=== PATIENT | male | born 1970 | race Caucasian/White ===

== ENCOUNTER 2016-08-18 18:40 | Emergency (ER) | payer BC ==
[2016-08-18] MEDS ORDERED: NITROGLYCERIN OINT 1 INCH/GM PACKET TOPICAL STA (19:34)
[2016-08-18] MEDS ORDERED: ASPIRIN 81 MG CHEW PO STA (19:34)
--- NOTE | 2016-08-18 19:37 | ED ---
General Adult HPI - General Chief complaint: Recheck/Abnormal Lab/Rx Stated complaint: abn labs Time Seen by Provider: 08/18/16 19:28 Source: patient, RN notes reviewed Mode of arrival: ambulatory Limitations: no limitations - History of Present Illness Initial comments: Patient is a pleasant 45-year-old male presenting to the emergency department for abnormal lab results. Patient saw his doctor for what he believed to be anxiety. Symptoms have been present for a few months. Patient does feel anxious and nervous. Patient is having she is taking care of his mother. Patient does admit to having some mild chest tightness. Patient did have blood work done. Blood work was done around 2:00 today. Patient did receive a call stating there was concern for pulmonary embolism. Patient denies dyspnea. No associated nausea or diaphoresis either. Patient has had similar symptoms once years ago associated with anxiety. - Related Data Home Medications Medication Instructions Recorded Confirmed FLUoxetine HCL [PROzac] 20 mg PO DAILY 08/18/16 08/18/16 Gluc/[place]-MSM#1/C/Juan/Andre/Bor 1 tab PO DAILY 08/18/16 08/18/16 [Glucosamine-Chondroitin Tablet] Multivitamins, Thera [Multivitamin 1 tab PO DAILY 08/18/16 08/18/16 (formulary)] Allergies Allergy/AdvReac Type Severity Reaction Status Date / Time No Known Allergies Allergy Verified 08/18/16 20:17 Review of Systems ROS Statement: Those systems with pertinent positive or pertinent negative responses have been documented in the HPI. ROS Other: All systems not noted in ROS Statement are negative. Constitutional: Denies: fever Eyes: Denies: eye pain ENT: Denies: ear pain Respiratory: Denies: cough, dyspnea Cardiovascular: Reports: chest pain Endocrine: Denies: heat or cold intolerance Gastrointestinal: Denies: abdominal pain Genitourinary: Denies: dysuria Musculoskeletal: Denies: back pain Skin: Denies: rash Neurological: Denies: weakness Psychiatric: Reports: anxiety Past Medical History Past Medical History: No Reported History History of Any Multi-Drug Resistant Organisms: None Reported Past Surgical History: No Surgical Hx Reported Past Psychological History: Anxiety Smoking Status: Current every day smoker Past Alcohol Use History: Daily Past Drug Use History: None Reported General Exam Limitations: no limitations General appearance: alert, in no apparent distress Head exam: Present: atraumatic Eye exam: Present: normal appearance, PERRL ENT exam: Present: normal oropharynx Neck exam: Present: normal inspection Respiratory exam: Present: normal lung sounds bilaterally. Absent: chest wall tenderness Cardiovascular Exam: Present: regular rate, normal rhythm Expanded Peripheral pulses: 2+: Dorsalis Pedis (R), Dorsalis Pedis (L) GI/Abdominal exam: Present: soft. Absent: tenderness Extremities exam: Present: normal inspection. Absent: pedal edema, calf tenderness Neurological exam: Present: alert Psychiatric exam: Present: normal affect, normal mood Skin exam: Absent: rash Course Vital Signs 08/18/16 08/18/16 08/18/16 18:44 19:45 21:00 Temperature 97.4 F L Pulse Rate 68 68 Pulse Rate [ 69 Bilateral Analysis Intern ] Respiratory 20 18 Rate Blood Pressure 123/80 122/68 O2 Sat by Pulse 98 98 Oximetry EKG Findings - EKG Comments: EKG Findings:: Sinus bradycardia at 55. Normal intervals. Normal axis. Normal QRS. No acute ST change. Medical Decision Making - Medical Decision Making Patient reexamined and resting comfortably in bed. Patient symptom-free. Patient and family updated on results. Patient is made aware that heart disease has not been completely ruled out. Patient is made aware of limitations in the emergency department. Patient is made aware that troponin cannot rule out heart attack over the past 6 hours. Patient is also made aware that he could be at risk for heart attack in the near future. Patient is advised if he decides to leave to have close follow-up with primary care physician. Patient does demonstrate medical decision making. Family is also present. Patient refuses admission. - Lab Data Result diagrams: 08/18/16 19:51 08/18/16 19:51 Lab Results 08/18/16 08/18/16 08/18/16 Range/Units 19:51 19:51 19:51 WBC 6.9 (3.8-10.6) k/uL RBC 4.63 (4.30-5.90) m/uL Hgb 14.5 (13.0-17.5) gm/dL Hct 44.3 (39.0-53.0) % MCV 95.6 (80.0-100.0) fL MCH 31.3 (25.0-35.0) pg MCHC 32.7 (31.0-37.0) g/dL RDW 13.1 (11.5-15.5) % Plt Count 242 (150-450) k/uL Neutrophils % 60 % Lymphocytes % 28 % Monocytes % 6 % Eosinophils % 3 % Basophils % 1 % Neutrophils # 4.1 (1.3-7.7) k/uL Lymphocytes # 1.9 (1.0-4.8) k/uL Monocytes # 0.4 (0-1.0) k/uL Eosinophils # 0.2 (0-0.7) k/uL Basophils # 0.1 (0-0.2) k/uL PT (9.0-12.0) sec INR (<1.1) APTT (22.0-30.0) sec Sodium 143 (137-145) mmol/L Potassium 4.1 (3.5-5.1) mmol/L Chloride 104 (98-107) mmol/L Carbon Dioxide 27 (22-30) mmol/L Anion Gap 12 mmol/L BUN 9 (9-20) mg/dL Creatinine 0.75 (0.66-1.25) mg/dL Est GFR (MDRD) Af Amer >60 (>60 ml/min/1.73 sqM) Est GFR (MDRD) Non-Af >60 (>60 ml/min/1.73 sqM) Glucose 77 (74-99) mg/dL Calcium 9.7 (8.4-10.2) mg/dL Magnesium 2.2 (1.6-2.3) mg/dL Total Bilirubin 0.5 (0.2-1.3) mg/dL AST 40 (17-59) U/L ALT 35 (21-72) U/L Alkaline Phosphatase 62 (38-126) U/L Total Creatine Kinase 165 (55-170) U/L CK-MB (CK-2) 2.3 (0.0-2.4) ng/mL CK-MB (CK-2) Rel Index 1.4 Troponin I <0.012 (0.000-0.034) ng/mL Total Protein 8.0 (6.3-8.2) g/dL Albumin 5.1 H (3.5-5.0) g/dL 08/18/16 Range/Units 19:51 WBC (3.8-10.6) k/uL RBC (4.30-5.90) m/uL Hgb (13.0-17.5) gm/dL Hct (39.0-53.0) % MCV (80.0-100.0) fL MCH (25.0-35.0) pg MCHC (31.0-37.0) g/dL RDW (11.5-15.5) % Plt Count (150-450) k/uL Neutrophils % % Lymphocytes % % Monocytes % % Eosinophils % % Basophils % % Neutrophils # (1.3-7.7) k/uL Lymphocytes # (1.0-4.8) k/uL Monocytes # (0-1.0) k/uL Eosinophils # (0-0.7) k/uL Basophils # (0-0.2) k/uL PT 9.7 (9.0-12.0) sec INR 0.9 (<1.1) APTT 24.8 (22.0-30.0) sec Sodium (137-145) mmol/L Potassium (3.5-5.1) mmol/L Chloride (98-107) mmol/L Carbon Dioxide (22-30) mmol/L Anion Gap mmol/L BUN (9-20) mg/dL Creatinine (0.66-1.25) mg/dL Est GFR (MDRD) Af Amer (>60 ml/min/1.73 sqM) Est GFR (MDRD) Non-Af (>60 ml/min/1.73 sqM) Glucose (74-99) mg/dL Calcium (8.4-10.2) mg/dL Magnesium (1.6-2.3) mg/dL Total Bilirubin (0.2-1.3) mg/dL AST (17-59) U/L ALT (21-72) U/L Alkaline Phosphatase (38-126) U/L Total Creatine Kinase (55-170) U/L CK-MB (CK-2) (0.0-2.4) ng/mL CK-MB (CK-2) Rel Index Troponin I (0.000-0.034) ng/mL Total Protein (6.3-8.2) g/dL Albumin (3.5-5.0) g/dL - Radiology Data Radiology results: report reviewed (CT angios the chest shows no evidence of pulmonary embolism) Disposition Clinical Impression: Anxiety, Chest pain Disposition: HOME SELF-CARE Condition: Stable Instructions: Chest Pain (ED), Anxiety (ED) Additional Instructions: Please follow-up with primary care physician tomorrow. Return for difficulty in breathing, chest pain, nausea vomiting, sweating, worsening or changing symptoms or other concerns. Referrals: Sudhir Sierra MD [Primary Care Provider] - 1-2 days
[2016-08-18] MEDS ORDERED: RX INFO: IV CONTRAST WAS GIVEN 1 EACH MISC MISCELLANE PRN (20:01)
[2016-08-18 20:08] LABS: Basophils # (A) 0.1 k/uL (0-0.2); Basophils % (A) 1 %; CH 31.7; CHCM 33.2; Eosinophils # (A) 0.2 k/uL (0-0.7); Eosinophils % (A) 3 %; HCT 44.3 % (39.0-53.0); HDW 1.97; HGB 14.5 gm/dL (13.0-17.5); Luc # (Auto) 0.18; Luc % (Auto) 3; Lymphocytes # (A) 1.9 k/uL (1.0-4.8); Lymphocytes % (A) 28 %; MCH 31.3 pg (25.0-35.0); MCHC 32.7 g/dL (31.0-37.0); MCV 95.6 fL (80.0-100.0); Mean Platelet Volume 6.7; Monocytes # (A) 0.4 k/uL (0-1.0); Monocytes % (A) 6 %; Neutrophils # (A) 4.1 k/uL (1.3-7.7); Neutrophils % (A) 60 %; RBC 4.63 m/uL (4.30-5.90); RDW 13.1 % (11.5-15.5); WBC 6.9 k/uL (3.8-10.6); WBC (Perox) 6.91
[2016-08-18 20:18] LABS: ALT 35 U/L (21-72); AST 40 U/L (17-59); Alkaline Phosphatase 62 U/L (38-126); Anion Gap 12 mmol/L; Blood Urea Nitrogen 9 mg/dL (9-20); Calcium 9.7 mg/dL (8.4-10.2); Carbon Dioxide 27 mmol/L (22-30); Chloride 104 mmol/L (98-107); Glucose 77 mg/dL (74-99); Magnesium 2.2 mg/dL (1.6-2.3); Non-African American GFR(MDRD) >60 (>60 ml/min/1.73 sqM); Potassium 4.1 mmol/L (3.5-5.1); Sodium 143 mmol/L (137-145); Total Bilirubin 0.5 mg/dL (0.2-1.3)
[2016-08-18 20:21] LABS: INR 0.9 (<1.1); Partial Thromboplastin Time 24.8 sec (22.0-30.0); Prothrombin Time 9.7 sec (9.0-12.0)
[2016-08-18 20:39] LABS: Creatine Kinase 165 U/L (55-170)
--- NOTE | 2016-08-18 20:43 | CT ---
EXAMINATION TYPE: CT angio chest DATE OF EXAM: 08/18/2016 8:32 PM COMPARISON: NONE HISTORY: chest pressure, abnormal ekg/labs CT DLP: 168.1 mGycm CONTRAST: CT chest with contrast and 3D reconstruction with MIP imaging is performed with IV Contrast, patient injected with 70 mL of Omnipaque 350. Contrast-enhanced CT of the chest was performed through the course of the pulmonary arteries with beverly g and mediastinal window settings submitted. 3D reconstruction with MIP imaging was also performed. PULMONARY ARTERIES: The pulmonary arteries and their major tributaries are patent. I do not see aditi dence for sizable filling defect to suggest pulmonary embolic process. LUNGS: The lungs are clear and free of infiltrate. No evidence for atelectasis. No pulmonary nodule or mass is detected. No pleural effusion. MEDIASTINUM: Thoracic aorta is of normal caliber . The heart is not enlarged. No evidence for media stinal mass. No mediastinal lymph nodes greater than 1cm. HILAR STRUCTURES: No evidence for mass. No hilar lymph nodes greater than 1 cm. UPPER ABDOMEN: No significant abnormality is seen. IMPRESSION: 1. No evidence for Pulmonary embolism at this time.
[2016-08-18 20:51] LABS: Creatine Kinase MB 2.3 ng/mL (0.0-2.4); Troponin I <0.012 ng/mL (0.000-0.034)
[2016-08-18 21:06] VITALS: BP 122/68
[2016-08-18 21:13] VITALS: PULSE 78; RESP 16; TEMP 97.8
== END 2016-08-18 21:15 | disposition home or self-care (01) ==
LOC: EC 18:40
DX: R07.89 Other chest pain (principal); F41.9 Anxiety disorder, unspecified; F17.200 Nicotine dependence, unspecified, uncomplicated; Z79.899 Other long term (current) drug therapy
CPT/HCPCS: 36415; 93005; 80053; 82550; 82553; 83735; 84484; 85025; 85610; 85730; 71275; 99284; Q9967

== ENCOUNTER → 2017-11-02 | Outpatient (CLI) | payer BC ==
--- NOTE | 2017-11-03 10:34 | ECHOS ---
STRESS ECHOCARDIOGRAM DATE OF SERVICE: 11/02/2017 INDICATIONS: Chest pain. MEDICATIONS: Celexa, Inderal, Motrin. BASELINE HEART RATE: 73 BASELINE BLOOD PRESSURE: 146/60 MAXIMUM HEART RATE: 159 MAXIMUM BLOOD PRESSURE: 191/88 85% MPHR: 149 100% MPHR: 175 METS: 10.3 MAXIMUM STAGE REACHED: 3 TOTAL EXERCISE TIME: 9:00 CLINICAL INFORMATION: Baseline EKG revealed a normal sinus rhythm without significant ST-T changes. Patient walked on a standard Michael protocol for 9 minutes, achieved a maximum heart rate of 159 beats per minute which is more than 85% of predicted maximum. He developed fatigue and shortness of breath but did not have any angina or arrhythmia. EKG did not reveal any ST-segment changes to indicate ischemia. By EKG criteria this is a negative stress test with fair exercise capacity. Baseline echo images revealed normal wall motion and wall thickening of all segments. At peak exercise there was good augmentation of left ventricular wall motion and wall thickening of all segments suggesting that there is no evidence of stress-induced ischemia on this study. IMPRESSION: 1. By EKG criteria this is a negative stress test. Fair exercise capacity. 2. Normal stress echocardiogram. MMODL / IJN: [id number] /
== END | disposition home or self-care (01) ==
LOC: RADNMMAIN 11:23
PROVIDERS: ATTEND Family Medicine
DX: R07.89 Other chest pain (principal)
CPT/HCPCS: 93351

== ENCOUNTER → 2018-11-17 | Outpatient (CLI) | payer BC ==
--- NOTE | 2018-11-19 13:22 | MR ---
MRI CERVICAL SPINE: CLINICAL HISTORY: Cervical disc disorder with radiculopathy per order. Neck pain into shoulders and a jorden bilaterally for years per patient. TECHNIQUE: Multiplanar, multisequence imaging of the cervical spine is performed without IV contrast. COMPARISON: None. FINDINGS: Exam slightly suboptimal due to motion artifact degradation. Sagittal images of the cervica l spine show the craniocervical junction to appear within normal limits. The cervical and upper thor acic spinal cord is normal in course, caliber, and signal. Vertebral alignment is anatomic. The madi tebral body and intravertebral disk heights are normal. The bone marrow signal intensity is within n ormal limits. No suspicious spurring is seen. Axial images show the C2-C3 and C3-C4 levels appear within normal limits. Axial images at C4-C5 level show right foraminal spur disc complex mildly effacing anterolateral thec al sac and causing [id number] right-sided neural foraminal narrowing on axial image 29. Axial images at C5-C6, C6 and C7, C7-T1 levels are felt within normal limits. Thyroid gland is unrema rkable. IMPRESSION: Right paracentral spur disc complex C4-C5 level effaces anterolateral thecal sac and caus es asymmetric [id number] right-sided neural foraminal narrowing.
== END | disposition home or self-care (01) ==
LOC: RADMRIMAIN 19:49
PROVIDERS: ATTEND Physician Assistant
DX: M48.02 Spinal stenosis, cervical region (principal)
CPT/HCPCS: 72141

== ENCOUNTER → 2018-11-27 | Outpatient (CLI) | payer BC ==
[2018-11-27 12:11] VITALS: BP 149/84; PULSE 69; RESP 16
--- NOTE | 2018-11-28 09:34 | P.PAINCN ---
History of Present Illness - Reason for Consult Consult date: 11/27/18 - History of Present Illness This is a 47-year-old male patient who presents with a history of neck pain radiating to bilateral shoulders, bilateral lateral aspects of the arms. Pain started a few months ago with no inciting events. 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 He endorses numbness and tingling in the lateral aspects of his arms as well as all 5 fingers left greater than right. He occasionally drops objects when his hands are numb. The pain is significantly worse at night, and wakes him up from sleep. Pain is better with flexion, extension exercises of his neck and Flexeril. Pain is rated as 0-5 on 10 in his neck and 0-10 on 10 in his arms. The pain is intermittent. The patient has had an intramuscular steroid injection with some benefit. He has not been to physical therapy, and has not had surgery. Patient has been taking medications from primary care physician including Flexeril with some relief. Patient denies adverse drug effects from medications. Patient also denies new-onset weakness, bowel/bladder incontinence, or any other signs or symptoms of cauda equina syndrome. There are no signs of acute intoxication, and no indications of medication diversion or overuse. In addition to above, 13-point review of systems is also negative for chest pain, shortness of breath, changes in vision, changes in hearing, new onset weakness, abdominal pain, diarrhea, extreme fatigue, malaise, fever, skin changes, homicidal or suicidal ideation, or bowel or bladder incontinence. The patient is a smoker and smokes about one pack per day Physical exam: Vital Signs: Reviewed in EMR GENERAL: Well appearing, in no acute distress PSYCH: Mood and affect is appropriate. Awake, alert, and oriented SKIN: Skin color, texture, turgor normal, no rashes or lesions HEENT: Normocephalic, atraumatic. EOM intact CV: No pedal edema RESP: Respirations are unlabored, no audible wheezing GI: Abdomen non-distended MUSCULOSKELETAL: Bilateral upper and lower extremity strength is normal and symmetric. No atrophy or tone abnormalities are noted. Neck: No pain to palpation over the cervical paraspinous muscles. Spurling negative, Axial Loading Test negative, Thorne's sign negative. No pain with neck flexion, extension, or lateral flexion. No obvious deformity or signs of trauma. Normal cervical lordotic curve and normal cervical spine range of motion Extremities: Peripheral joint ROM is full and pain free without obvious instability or laxity in all four extremities. No edema or skin discolorations noted. Gait: Gait is normal NEUR: Bilateral upper extremity coordination and muscle stretch reflexes are physiologic and symmetric. Negative clonus. No loss of sensation is noted. Cranial nerves are grossly intact. Imaging: MRI cervical spine done on 11/17/2018 at [facility] shows right paracentral spur disc complex at C4-C5 level if facing anterolateral thecal sac and causing mild to moderate right-sided neural foraminal narrowing Assessment: 1. Cervicalgia 2. Cervical radicular pain 3. Cervical degenerative disc disease Plan: 1. Explanation: Opioid and psychological risk scores were reviewed. Diagnoses, prognoses, and multiple treatment options including but not limited to physical therapy, interventional therapies, adjuvant medical therapies, narcotic medication therapies, and surgery were discussed with the patient and all questions were answered to the patient's satisfaction. 2. Opioid agreement: None 3. Counseling: The patient was counseled extensively on SMOKING CESSATION, EXERCISE. Specifically, the patient was instructed regarding the importance of smoking cessation, and exercise in the context of both chronic pain and overall health. 4. Procedures: Will schedule C7-T1 cervical epidural steroid injection 5. Consultations: None at this time, following procedure, would recommend neck physical therapy with traction. 6. Investigations: MRI C-spine reviewed 7. Medications: Encouraged to discuss starting Neurontin with his primary care physician. Would recommend initial dose of 300 mg 3 times a day, with up titration as tolerated. 8. Disposition: For procedure Past Medical History Past Medical History: GERD/Reflux, Hearing Disorder / Deafness, Musculoskeletal Disorder Additional Past Medical History / Comment(s): HX CONSTIPATED FOR MONTHS. HYPOGLYCEMIC. TACHYCARDIA. HX KIDNEY STONES. C/O NECK PAIN RADIATES TO ARMS, BACK. History of Any Multi-Drug Resistant Organisms: None Reported Past Surgical History: Orthopedic Surgery Additional Past Surgical History / Comment(s): IVP 1996. LT 5TH METATARSAL. Past Anesthesia/Blood Transfusion Reactions: No Reported Reaction Past Psychological History: Anxiety Smoking Status: Current every day smoker Past Alcohol Use History: Daily, Heavy Additional Past Alcohol Use History / Comment(s): SMOKES 1 PPD SINCE AGE 18. DRINKS 12 BEERS DAILY Past Drug Use History: None Reported - Past Family History Mother Family Medical History: No Reported History Sister(s) Family Medical History: Cancer, Diabetes Mellitus Medications and Allergies Home Medications Medication Instructions Recorded Confirmed Type Citalopram Hydrobromide [CeleXA] 40 mg PO HS 02/28/17 11/23/18 History EPINEPHrine (Auto Inject) [Epipen] 1 each INJ DAILY PRN 02/28/17 11/23/18 History Ibuprofen [Motrin] 800 mg PO Q8H PRN 02/28/17 11/23/18 History Atenolol [Tenormin] 25 mg PO HS 11/23/18 11/23/18 History Cyclobenzaprine [Flexeril] 5 mg PO HS PRN 11/23/18 11/23/18 History Allergies Allergy/AdvReac Type Severity Reaction Status Date / Time bee venom protein (honey bee) Allergy Anaphylaxis Verified 11/27/18 11:56 HAYFEVER Allergy Rhinitis Uncoded 11/27/18 11:56 Physical Exam Vitals: Vital Signs Pulse Resp BP 11/27/18 11:56 69 16 149/84 PQRS Measure Charge Sheet Measure #130: Documentation of Current Meds in Medical Chart: Patient's medications documented in chart Measure #226: Tobacco Use: Screen & Cessation Intervention: Pt screened for tobacco use AND intervention given Measure #111: Pneumonia Vaccination: Pneumococcal vaccine NOT administered or previously given Measure #47: Advance Care Plan: Advance care planning discussed & documented, pt chose/unable to give Measure #412: Opioid Treatment Agreement: No documentation of signed opioid treatment agreement Measure #317: Preventitive Care & Scrn High Bld Press & F/U: Pre-hypertensive or hypertensive BP documented, pt will f/u with PCP Measure #128: Body Mass Index (BMI) Screening & Follow-up: BMI documented within normal parameters Measure #131: Pain Assessment & Follow-up: Pain positive & plan documented, Follow-up scheduled Measure #431: Unhealthy Alcohol Use Preventative Care & Scrn: Patient not identified as an unhealthy alcohol user PQRS Narrative: Smoking Status Current every day smoker Blood Pressure 149/84 Pain Intensity [Bilateral Hand 0 ] Pain Intensity [Bilateral Arm] 0 Pain Intensity [Neck] 3 Hx Alcohol Use (MH) Yes: 12 BEERS DAILY EST Home Medications: Ambulatory Orders Citalopram Hydrobromide [CeleXA] 40 mg PO HS 02/28/17 EPINEPHrine (Auto Inject) [Epipen] 1 each INJ DAILY PRN 02/28/17 Ibuprofen [Motrin] 800 mg PO Q8H PRN 02/28/17 Atenolol [Tenormin] 25 mg PO HS 11/23/18 Cyclobenzaprine [Flexeril] 5 mg PO HS PRN 11/23/18
== END | disposition home or self-care (01) ==
LOC: PNWHC3 11:49
PROVIDERS: ATTEND Anesthesiology
DX: M50.10 Cervical disc disorder with radiculopathy, unspecified cervical region (principal); F17.210 Nicotine dependence, cigarettes, uncomplicated; Z79.899 Other long term (current) drug therapy
CPT/HCPCS: 99211

== ENCOUNTER → 2018-12-04 | Day surgery (SDC) | payer BC ==
[2018-11-29 12:17] VITALS: BMI 22.8
[~2018-12-04] MED LIST: IV FLUID CONTINUATION 1,000 ML IV ONE; LACTATED RINGERS 1,000 ML IV ONE
[2018-12-04 10:09] VITALS: RESP 17; TEMP 98
--- NOTE | 2018-12-04 11:34 | P.PCN ---
Date of Procedure: 12/04/18 Procedure(s) Performed: Diagnosis: Cervical radiculopathy Cervical degenerative disc disease POSTOPERATIVE DIAGNOSIS: Diagnoses: Cervical radiculopathy Cervical degenerative disc disease PROCEDURE Cervical Epidural steroid injection under fluoroscopic guidance at the C7-T1 interspace using left paramedian approach Cervical epidurogram ANESTHESIA: Local with 1% lidocaine 3 ml and IV sedation with Versed and fentanyl Fluoroscopy was used for the procedure and images were saved in the radiology portion of the chart. EBL: Minimal PROCEDURE INDICATION: The patient presents with cervical radicular symptoms unresponsive to conservative treatment. This is the first cervical epidural steroid injection. PROCEDURE DESCRIPTION / TECHNIQUE: The patient was seen and identified in the preoperative area. Risks, benefits, complications including but not limited to infections ,bleeding ,allergic reaction to the medications ,nerve damage and incomplete pain relief, and alternatives were discussed with the patient. The patient agreed to proceed with the procedure and signed the consent. IV was started, and vital signs were stable. Patient was taken to the OR and time out was completed. The patient was placed in the prone position on procedure table and a pillow was placed under the chest area. The cervical area was prepped and draped in the usual sterile fashion. Conscious sedation was used during the procedure to decrease patients anxiety. Vital signs was monitored during the entire procedure. Using anterior-posterior fluoroscopy, the C7-T1 interlaminar space was identified and the skin over this site was marked and then infiltrated with 1% lidocaine subcutaneously. Subsequently, a 20-gauge Tuohy epidural needle was inserted and advanced toward the epidural space using the loss of resistance technique and guided by AP and 50 oblique fluoroscopy. The correct needle position in the epidural space was verified. After negative aspiration for blood and CSF and in the absence of paresthesias, Isovue 200 2 mL's was injected under live fluoroscopy with good epidural spread. After negative aspiration, a 5 ml mixture containing 10 mg of dexamethasone, 3 mL of preservative free normal saline and 1 mL of 1% lidocaine was injected. Needle was withdrawn intact, skin was cleansed, and bandages were applied. COMPLICATIONS: None DISPOSITION / PLANS: The patient was placed in a supine position and transferred to the recovery area in a stable condition for observation. There was no evidence of lower extremity motor or sensory deficit after the procedure. Patient was discharged from the recovery room after meeting discharge criteria. Home discharge instructions were given to the patient by the staff. The patient will be scheduled a follow-up in the clinic in 2-4 weeks.
[2018-12-04 11:55] VITALS: BP 127/77; PULSE 67
--- NOTE | 2018-12-04 14:53 | FL ---
Fluoroscopy HISTORY: Pain 5 seconds fluoroscopy time supplied to the referring clinician. 3 intraoperative C-arm images docume nt the procedure. See dictated report from anesthesia.
== END ==
LOC: ORPAIN 09:22
PROVIDERS: ATTEND Anesthesiology
DX: M50.121 Cervical disc disorder at C4-C5 level with radiculopathy (principal); K21.9 Gastro-esophageal reflux disease without esophagitis; H91.90 Unspecified hearing loss, unspecified ear; F41.9 Anxiety disorder, unspecified; K59.00 Constipation, unspecified; F17.200 Nicotine dependence, unspecified, uncomplicated; Z87.442 Personal history of urinary calculi; Z79.1 Long term (current) use of non-steroidal anti-inflammatories (NSAID); Z79.899 Other long term (current) drug therapy; J30.1 Allergic rhinitis due to pollen; Z91.030 Bee allergy status; Z83.3 Family history of diabetes mellitus; Z80.9 Family history of malignant neoplasm, unspecified
CPT/HCPCS: 62321; J2250; J1100; J3010; Q9966; 99152

== ENCOUNTER → 2019-01-02 | Outpatient (CLI) | payer BC ==
[2019-01-02 12:10] VITALS: BP 153/86; PULSE 67; RESP 16
--- NOTE | 2019-01-02 15:20 | P.PAINPG ---
Subjective Progress Note Date: 01/02/19 Survey is a 48-year-old male who presents for follow-up after a cervical interlaminar injection, at the end of November. His MRI previously showed a C4-C5 paracentral disc complex. He previously complained of bilateral shoulder pain which radiated down his arms. After his injection he has had complete reso lution of his symptoms. He is very happy with the results. He had one incidence where he had some numbness in his hands after holding something for a long period of time, otherwise no new symptoms. He is very functional. Objective - Vital Signs Vital signs: Vital Signs Temp Pulse 67 01/02/19 12:03 Resp 16 01/02/19 12:03 BP 153/86 01/02/19 12:03 Pulse Ox 98 01/02/19 12:03 Intake & Output 01/01/19 01/02/19 01/02/19 18:59 06:59 18:59 Weight 65.771 kg - Exam Vital Signs: Reviewed in EMR GENERAL: Well appearing, in no acute distress, PSYCH: Mood and affect is appropriate. Awake, alert, and oriented SKIN: Skin color, texture, turgor normal, no rashes or lesions HEENT: Normocephalic, atraumatic. EOM intact CV: No pedal edema RESP: Respirations are unlabored, no audible wheezing GI: Abdomen non-distended MUSCULOSKELETAL: Bilateral upper and lower extremity strength is normal and symmetric. No atrophy or tone abnormalities are noted. Neck: No tenderness to palpation over cervical paraspinals. . No pain with neck flexion, extension, or lateral flexion. No obvious deformity or signs of trauma. Normal cervical lordotic curve and normal cervical spine range of motion Extremities: Peripheral joint ROM is full and pain free without obvious instability or laxity in all four extremities. No edema or skin discolorations noted. Gait: Gait is anantalgic NEUR: Bilateral upper and lower extremity coordination and muscle stretch refl exes are physiologic and symmetric. Negative clonus. No loss of sensation is noted. Cranial nerves are grossly intact. Assessment and Plan Assessment: Assessment: 1. Cervical radicular pain, resolved Plan: 1. Explanation: Spoke to him about nature of steroids, and how long they typically last. 2. Opioid agreement: None 3. Counseling: The patient was told to stay active. 4. Procedures: None at this time, however if his pain returns we can schedule a C7-T1 interlaminar epidural steroid injection 5. Consultations: None 6. Investigations: MRI reviewed 7. Medications: None 8. Disposition: As needed, he can call in for procedure , PQRS Measure Charge Sheet Measure #226: Tobacco Use: Screen & Cessation Intervention: Pt screened for tobacco use AND intervention given Measure #111: Pneumonia Vaccination: Pneumococcal vaccine NOT administered or previously given Measure #47: Advance Care Plan: Advance care planning discussed & documented, pt chose/unable to give Measure #131: Pain Assessment & Follow-up: Pain positive & plan documented, Follow-up scheduled PQRS Narrative: Smoking Status Current every day smoker Blood Pressure 153/86 Pain Intensity [Bilateral Arm] 0 Scale Used Numeric (1 - 10) Hx Alcohol Use (MH) Yes: 12 BEERS DAILY EST Home Medications: Ambulatory Orders Citalopram Hydrobromide [CeleXA] 40 mg PO HS 02/28/17 EPINEPHrine (Auto Inject) [Epipen] 1 each INJ DAILY PRN 02/28/17 Ibuprofen [Motrin] 800 mg PO Q8H PRN 02/28/17 Atenolol [Tenormin] 25 mg PO HS 11/23/18 Cyclobenzaprine [Flexeril] 5 mg PO HS PRN 11/23/18 Controlled Substance Measures - Controlled Substance Measures Is patient prescribed a controlled substance at discharge?: No
== END | disposition home or self-care (01) ==
LOC: PNWHC3 11:55
PROVIDERS: ATTEND Student in an Organized Health Care Education/Training Program
DX: M25.511 Pain in right shoulder (principal); F17.200 Nicotine dependence, unspecified, uncomplicated; Z79.899 Other long term (current) drug therapy
CPT/HCPCS: 99211

== ENCOUNTER → 2019-06-06 | Outpatient (CLI) | payer BC ==
--- NOTE | 2019-06-06 09:09 | US ---
EXAMINATION TYPE: US abdomen complete DATE OF EXAM: 06/06/2019 COMPARISON: NONE CLINICAL HISTORY: R10.9 Abdominal pain. abdominal pain, constipation EXAM MEASUREMENTS: Liver Length: 16.8 cm Gallbladder Wall: 0.2 cm CBD: 0.4 cm Spleen: 9.1 cm Right Kidney: 10.0 x 4.6 x 4.8 cm Left Kidney: 9.8 x 6.1 x 5.0 cm Pancreas: slightly heterogeneous Liver: wnl Gallbladder: Elongated measuring 8.8 cm Evidence for sonographic Orozco's sign: no CBD: wnl Spleen: wnl Right Kidney: no evidence of hydronephrosis Left Kidney: no evidence of hydronephrosis Upper IVC: wnl Abd Aorta: wnl The liver is homogenous. The intrahepatic portion of the IVC and proximal abdominal aorta are within normal limits. There is no evidence of cholelithiasis. Common bile duct is unremarkable. The visu alized portions of the pancreas are slightly heterogenous. The spleen is unremarkable. Kidneys are symmetric and free of hydronephrosis. No renal lesions are seen. IMPRESSION: 1. Slightly heterogenous echotexture of the visualized pancreas. Correlate with serum amylase and lip ase to exclude pancreatitis. 2. No sonographic findings of acute cholecystitis. The gallbladder is noted to be elongated, which ma y be physiologic or related to biliary dysfunction. If there is further concern HIDA scan with CCK co uld evaluate for biliary dyskinesia.
== END | disposition home or self-care (01) ==
LOC: RADUSWWP 07:22
PROVIDERS: ATTEND Nurse Practitioner Adult Health
DX: K82.8 Other specified diseases of gallbladder (principal); R93.5 Abnormal findings on diagnostic imaging of other abdominal regions, including retroperitoneum
CPT/HCPCS: 76700

== ENCOUNTER → 2019-06-14 | Outpatient (CLI) | payer BC ==
--- NOTE | 2019-06-14 14:39 | NM ---
EXAMINATION TYPE: NM hepatobiliary w CCK DATE OF EXAM: 06/14/2019 COMPARISON: NONE HISTORY: Abdominal pain TECHNIQUE: After the intravenous administration of 4 mCi Tc 99m Mebrofenin hepatobiliary scintigraphy is performed. Immediate images post injection. FINDINGS: There is satisfactory initial accumulation of tracer by the liver. The gallbladder is visualized wit hin 12 minutes. The small bowel activity is noted within 8 minutes. At one hour CCK was administere d, patient was injected with 1.4 mcg of Kinevac, and gallbladder ejection fraction is calculated at 9 9 %, elevated. Therefore there is no scintigraphic evidence of cystic or common bile duct obstructio n to suggest acute cholecystitis or gallbladder dyskinesia. IMPRESSION: Abnormally elevated biliary ejection fraction of 99% compatible with biliary hyperkinesia .
== END | disposition home or self-care (01) ==
LOC: RADNMMAIN 12:31
PROVIDERS: ATTEND Family Medicine
DX: R93.2 Abnormal findings on diagnostic imaging of liver and biliary tract (principal); R10.9 Unspecified abdominal pain
CPT/HCPCS: 78227; A9537; J2805

== ENCOUNTER 2021-03-26 02:04 | Emergency (ER) | payer BC, OTHER ==
[2021-03-26 02:11] VITALS: TEMP 98.5
[2021-03-26 02:36] VITALS: BP 141/72; PULSE 78; RESP 18
== END 2021-03-26 02:36 ==
LOC: EC 02:04
DX: Z53.21 Procedure and treatment not carried out due to patient leaving prior to being seen by health care provider (principal)
CPT/HCPCS: 99499

== ENCOUNTER → 2024-08-08 | Outpatient (CLI) | payer BC ==
--- NOTE | 2024-08-08 15:35 | CT ---
EXAMINATION TYPE: CT heart w calcium score DATE OF EXAM: 08/08/2024 COMPARISON: None CLINICAL INDICATION: Male, 53 years old with history of Z82.49 FAMILY HX OF ISCHEM HEART DIS AND OTH DIS O; PHH, Family hx ischemic heart disease TECHNIQUE: Prospective Gating was used. Slice thickness: 3mm. Density threshold (HU): 130, Pixel threshold: 3, Algorithm: discrete. CT DLP: 568.[address] CTDI: mGy Automated exposure control for dose reduction was used. FINDINGS: CT CALCIUM SCORING Coronary calcium is a marker for plaque (fatty deposits) in a blood vessel or atherosclerosis (harden ing of the arteries). The presence and amount of calcium detected in a coronary artery by the CT sca n, indicates the presence and amount of atherosclerotic plaque. These calcium deposits appear years before the development of heart disease symptoms such as chest pain and shortness of breath. A calcium score is computed for each of the coronary arteries based upon the volume and density of th e calcium deposits. This can be referred to as your calcified plaque burden. It does not correspond directly to the percentage of narrowing in the artery but does correlate with the severity of the un derlying coronary atherosclerosis. RESULTS Region: LM Calcium Score ([place]): 0 Volume (mm3): 0 Mass (g): 0 Region: RCA Calcium Score ([place]): 0 Volume (mm3): 0 Mass (g): 0 Region: LAD Calcium Score ([place]): 4.17 Volume (mm3): 3.13 Mass (g): 1.04 Region: CX Calcium Score ([place]): 0 Volume (mm3): 0 Mass (g): 0 Region: PDA Calcium Score ([place]): 0 Volume (mm3): 0 Mass (g): 0 Total: Calcium Score ([place]): 0 Volume (mm3): 4.17 Mass (g): 1.04 TOTAL CALCIUM SCORE: 3.13 IMPRESSION: Calcium Score: 1-10 Implication: Minimal identifable plaque. Risk of Coronary Artery Disease: Very unlikely, less than 10%. CALCIUM SCORE IMPLICATION RISK OF C ORONARY ARTERY DISEASE 0 No identifiable plaque Very low, generally less than 5% 1-10 Minimal identifiable plaque Very unlikely, less than 10% 11-100 Definite, at least mild atherosclerotic plaque Mild or m inimal coronary narrowings likely 101-400 Definite, at least moderate atherosclerotic plaque Mild coronary ar giovanni disease highly likely, significant narrowing possible 401 or Higher Extensive atherosclerotic plaque High lik elihood of at least one significant coronary narrowing [facility], , 08/08/2024 3:33 PM
--- NOTE | 2024-08-09 10:20 | CA ---
Transthoracic Echo Report Name: Jose A Sultana Age: 53 Gender: M : 1970 Exam Date: 08/08/2024 13:47 Exam Location: [place] [facility] Ht (in): 68 Wt (lb): 150 Ordering Physician: Sudhir Sierra MD Attending/Referring Phys: Gricel Napier [facility] Marine Animal Trainer Rosy Carolina RDCS Procedure CPT: Indications: Z82.49 FAMILY HX OF ISCHEM HEART DIS AND OTH DIS O Cardiac Hx: Technical Quality: Good Contrast 1: Total Dose (mL): Contrast 2: Total Dose (mL): MEASUREMENTS (Male / Female) Normal Values 2D ECHO LV Diastolic Diameter PLAX 4.7 cm 4.2 - 5.9 / 3.9 - 5.3 cm LV Systolic Diameter PLAX 3.2 cm IVS Diastolic Thickness 0.9 cm 0.6 - 1.0 / 0.6 - 0.9 cm LVPW Diastolic Thickness 0.9 cm 0.6 - 1.0 / 0.6 - 0.9 cm LV Relative Wall Thickness 0.4 RV Internal Dim ED PLAX 2.6 cm LVOT Diameter 1.8 cm LA Systolic Diameter LX 2.2 cm 3.0 - 4.0 / 2.7 - 3.8 cm LV Diastolic Volume MOD 4C 92.7 cm??? LV Systolic Volume MOD 4C 40.1 cm??? LV Ejection Fraction MOD 4C 56.7 % LV Diastolic Length 4C 9.7 cm LV Systolic Length 4C 7.8 cm LV Diastolic Volume MOD 2C 102.7 cm??? LV Systolic Volume MOD 2C 37.7 cm??? LV Ejection Fraction MOD 2C 63.3 % LV Diastolic Length 2C 8.8 cm LV Systolic Length 2C 6.8 cm LA Volume 37.3 cm??? 18 - 58 / 22 - 52 cm??? LA Volume Index 20.6 cm???/m??? 16 - 28 cm???/m??? DOPPLER MV Area PHT 3.0 cm??? Mitral E Point Velocity 71.9 cm/s Mitral A Point Velocity 63.5 cm/s Mitral E to A Ratio 1.1 MV Deceleration Time 251.3 ms TR Peak Velocity 175.8 cm/s TR Peak Gradient 12.4 mmHg Right Atrial Pressure 5.0 mmHg Pulmonary Artery Systolic Pressu 17.4 mmHg Right Ventricular Systolic Press 17.4 mmHg FINDINGS Left Ventricle Left ventricular ejection fraction is estimated at 60-65 %. Normal Left ventricular size, wall thickness, systolic function with no obvious regional wall motion abnormalities. Right Ventricle Mild right ventricular dilatation. Right ventricular systolic pressure within normal limits. Right Atrium Normal right atrial size. Left Atrium Normal left atrial size. Mitral Valve Mitral annular calcification. No mitral stenosis. No mitral regurgitation. Aortic Valve Aortic valve not well visualized. No aortic stenosis. No aortic regurgitation. Tricuspid Valve Structurally normal tricuspid valve. No tricuspid stenosis. Trace tricuspid regurgitation. Pulmonic Valve Pulmonic valve not well visualized. No pulmonic stenosis. No pulmonic regurgitation. Pericardium No pericardial or pleural effusion. Aorta Normal size aortic root and proximal ascending aorta. CONCLUSIONS Indication: Family history of ischemic heart disease, referred by Dr. Sierra Normal LV size and function Prominent posterior pericardial stripe Previewed by: Dr. Raman Kowalski MD (Electronically Signed) Final Date: 09 August 2024 10:19
== END | disposition home or self-care (01) ==
LOC: RADECHMAIN 13:38
PROVIDERS: ATTEND Family Medicine
DX: I65.23 Occlusion and stenosis of bilateral carotid arteries (principal); Z82.49 Family history of ischemic heart disease and other diseases of the circulatory system
CPT/HCPCS: 75571; 93306

== ENCOUNTER 2024-09-11 16:56 | Inpatient (IN) | payer BC ==
[2024-09-11] MEDS: LORazepam 2 MG/ML INJ IV STA (17:21)
[2024-09-11] MEDS: SODIUM CHLORIDE 0.9% 1,000 ML IV ONE ×2 (17:21→20:22)
--- NOTE | 2024-09-11 17:23 | ED ---
General Adult HPI <Sandi Bird - Last Filed: 09/11/24 19:31> - General Source: patient, EMS, RN notes reviewed, old records reviewed Mode of arrival: EMS Limitations: altered mental status <Mitul Rudd - Last Filed: 09/11/24 20:06> - General Chief complaint: Alcohol Stated complaint: Seizure Time Seen by Provider: 09/11/24 17:05 - History of Present Illness Initial comments: This is a 53-year-old male who has a past medical history significant for seizures after he stops drinking. Patient has stopped drinking for about 72 hours according to EMS and he had a seizure today he hit his head and he has a laceration on the right posterior aspect of his head. Patient was extremely postictal in arrival and needed to have 10 of IM Versed given. Patient is coming around now and he is alert and oriented x 2 but still somewhat confused. No other history is available at this time (Mitul Rudd) - Related Data Home Medications Medication Instructions Recorded Confirmed Citalopram Hydrobromide [CeleXA] 40 mg PO DAILY 09/11/24 09/11/24 Meloxicam [Mobic] 15 mg PO DAILY 09/11/24 09/11/24 Propranolol [Inderal] 20 mg PO TID 09/11/24 09/11/24 buPROPion XL [Wellbutrin XL] 150 mg PO DAILY 09/11/24 09/11/24 busPIRone HCl [Buspar] 5 mg PO BID PRN 09/11/24 09/11/24 Allergies Allergy/AdvReac Type Severity Reaction Status Date / Time bee venom protein (honey bee) Allergy Anaphylaxis Verified 09/11/24 18:18 HAYFEVER Allergy Rhinitis Uncoded 09/11/24 18:18 Review of Systems ROS Other: All systems not noted in ROS Statement are negative. <Sandi Bird - Last Filed: 09/11/24 19:31> ROS Other: All systems not noted in ROS Statement are negative. <Mitul Rudd - Last Filed: 09/11/24 20:06> ROS Statement: Those systems with pertinent positive or pertinent negative responses have been documented in the HPI. Past Medical History Past Medical History: GERD/Reflux, Hearing Disorder / Deafness, Musculoskeletal Disorder Additional Past Medical History / Comment(s): HX CONSTIPATED FOR MONTHS. HYPOGLYCEMIC. TACHYCARDIA. HX KIDNEY STONES. C/O NECK PAIN RADIATES TO ARMS, BACK. History of Any Multi-Drug Resistant Organisms: None Reported Past Surgical History: Cholecystectomy, Orthopedic Surgery Additional Past Surgical History / Comment(s): IVP 1996. LT 5TH METATARSAL. Past Anesthesia/Blood Transfusion Reactions: No Reported Reaction Past Psychological History: Anxiety Smoking Status: Never smoker Past Alcohol Use History: Daily, Heavy Past Drug Use History: None Reported - Past Family History Mother Family Medical History: No Reported History Sister(s) Family Medical History: Cancer, Diabetes Mellitus <Mitul Rudd - Last Filed: 09/11/24 20:06> General Exam Limitations: altered mental status <Mitul Rudd - Last Filed: 09/11/24 20:06> - General Exam Comments Initial Comments: GENERAL: Patient is well-developed and well-nourished. Patient is nontoxic and well- hydrated and is in mild distress. ENT: Neck is soft and supple. No significant lymphadenopathy is noted. Oropharynx is clear. Moist mucous membranes. Neck has full range of motion without eliciting any pain. EYES: The sclera were anicteric and conjunctiva were pink and moist. Extraocular movements were intact and pupils were equal round and reactive to light. Eyelids were unremarkable. PULMONARY: Unlabored respirations. Good breath sounds bilaterally. No audible rales r honchi or wheezing was noted. CARDIOVASCULAR: There is a regular rate and rhythm without any murmurs gallops or rubs. ABDOMEN: Soft and nontender with normal bowel sounds. SKIN: Elevation on the scalp measuring about 5 cm NEUROLOGIC: Patient is alert and oriented x 2. Cranial nerves II through XII are grossly intact. Motor and sensory are also intact. Normal speech, volume and content. Symmetrical smile. MUSCULOSKELETAL: Normal extremities with adequate strength and full range of motion. LYMPHATICS: No significant lymphadenopathy is noted PSYCHIATRIC: Cannot fully evaluate at this time (Mitul Rudd) Course Vital Signs 09/11/24 09/11/24 09/11/24 17:04 18:17 19:18 Temperature 97.4 F L Pulse Rate 105 H 82 81 Respiratory 20 18 18 Rate Blood Pressure 134/97 117/82 131/87 O2 Sat by Pulse 96 98 97 Oximetry Procedures - Laceration Laceration #1 Consent Obtained: verbal consent Indication: laceration Site: scalp Size (cm): 7 Description: stellate, flap Depth: simple, single layer Anesthetic Used: lidocaine 1%, without epi Anesthesia Technique: local infiltration Pre-repair: wound explored Type of Sutures: other ([place]) Number of Sutures: 10 Patient Tolerated Procedure: well, no complications <Sandi Bird - Last Filed: 09/11/24 19:31> - Restraint - Face to Face Restraint Occurrence 2 Patient's Immediate Situation: Endangers self safety, Endangers staff safety, Violent behavior, Other (see comment) (Was in a postictal state when he arrived) Patient's Reaction to the Intervention: Uncooperative, Belligerent, Combative Need to Continue or Terminate Restraint or Seclusion: Continue Face to Face Eval of Restraint Date: 09/11/24 Face to Face Eval of Restraint Time: 17:15 <Mitul Rudd - Last Filed: 09/11/24 20:06> Medical Decision Making - Lab Data Result diagrams: 09/11/24 17:24 09/11/24 17:24 <Sandi Bird - Last Filed: 09/11/24 19:31> - Lab Data Result diagrams: 09/11/24 17:24 09/11/24 17:24 <Mitul Rudd - Last Filed: 09/11/24 20:06> - Medical Decision Making EKG is interpreted by myself. EKG shows a sinus rhythm at 96 bpm DE interval 132 QRS is 91 QT interval is 321 QTc is 435. Patient's EKG shows no ST segment elevation or depression Was pt. sent in by a medical professional or institution (Dr. PA, PASSPORT SUPPORT MANAGER, urgent care, hospital, or custodial...) When possible be specific @ -No Did you speak to anyone other than the patient for history (EMS, parent, family, police, friend...)? What history was obtained from this source @ -No Did you review nursing and triage notes (agree or disagree)? Why? @ -I reviewed and agree with nursing and triage notes Were old charts reviewed (outside hosp., previous admission, EMS record, old EKG, old radiological studies, urgent care reports/EKG's, custodial records)? Report findings @ -No old charts were reviewed Differential Diagnosis? @ -Differential Seizure: Recurrent seizure disorder, febrile seizure, alcohol withdrawal, stimulants, meningitis, encephalitis, intercranial hemorrhage, intracranial tumor, stroke, eclampsia, thyrotoxicosis, hypocalcemia, hyponatremia, hypernatremia, hypomagnesemia, psychogenic, this is not meant to be an all-inclusive list. EKG interpreted by me (3pts min.). @ -As above X-rays interpreted by me (1pt min.). @ -None CT interpreted by me (1pt min.). @ -CT of the brain shows no acute abnormality CT of the C-spine shows no acute dramality U/S interpreted by me (1pt. min.). @ -None done What testing was considered but not performed or refused? (CT, X-rays, U/S, labs)? Why? @ -None What meds were considered but not given or refused? Why? @ -None Did you discuss the management of the patient with other professionals (professionals i.e. , PA, PASSPORT SUPPORT MANAGER, lab, RT, psych nurse, social services, wool buyer, teacher, aoc director combat operations officer, complex case manager)? Give summary @ -I spoke with sound physicians agreed to admit the patient admit the patient wrote admitting orders Was smoking cessation discussed for >3mins.? @ -No Was critical care preformed (if so, how long)? @ -35 minutes Were there social determinants of health that impacted care today? How? (Homelessness, low income, unemployed, alcoholism, drug addiction, transportation, low edu. Level, literacy, decrease access to med. care, long-term, rehab)? @ -No Was there de-escalation of care discussed even if they declined (Discuss DNR or withdrawal of care, Hospice)? DNR status @ -No What co-morbidities impacted this encounter? (DM, HTN, Smoking, COPD, CAD, Cancer, CVA, ARF, Chemo, Hep., AIDS, mental health diagnosis, sleep apnea, morbid obesity)? @ -None Was patient admitted / discharged? Hospital course, mention meds given and route, prescriptions, significant lab abnormalities, going to OR and other pertinent info. @ -Patient was postictal on arrival patient was initially restrained but he eventually came around to baseline. Patient was given 1 of Ativan to make sure he did not have any more seizures. Patient had a CAT scan of the brain and C- spine both were negative. Patient had a laceration sutured up by the physician clerical dentist assistant. Patient was given a tetanus shot. Patient will be admitted to [facility] [place] [facility]. Patient is alert and oriented x 2 he still not back to his baseline and he occasionally has repetitive questioning. I will start the patient on thiamine secondary to his altered mental status Undiagnosed new problem with uncertain prognosis? @ -No Drug Therapy requiring intensive monitoring for toxicity (Heparin, Nitro, Insulin, Cardizem)? @ -No Were any procedures done? @ -No Diagnosis/symptom? @ -Alcohol withdrawal seizure Acute, or Chronic, or Acute on Chronic? @ -Acute Uncomplicated (without systemic symptoms) or Complicated (systemic symptoms)? @ -Complicated Side effects of treatment? @ -No Exacerbation, Progression, or Severe Exacerbation? @ -No Poses a threat to life or bodily function? How? (Chest pain, USA, MS, pneumonia, PE, COPD, DKA, ARF, appy, cholecystitis, CVA, Diverticulitis, Homicidal, Suici sheila, threat to staff... and all critical care pts) @ -Yes alcohol withdrawal that is severe can cause Diagnosis/symptom? @ -Scalp laceration Acute, or Chronic, or Acute on Chronic? @ -Acute Uncomplicated (without systemic symptoms) or Complicated (systemic symptoms)? @ -Uncomplicated Side effects of treatment? @ -None Exacerbation, Progression, or Severe Exacerbation] @ -No Poses a threat to life or bodily function? @ -No (Mitul Rudd) - Lab Data Lab Results 09/11/24 09/11/24 Range/Units 17:24 17:24 WBC 9.36 (4.50-10.00) 10*3/uL RBC 4.13 L (4.40-5.60) 10*6/uL Hgb 13.2 (13.0-17.0) g/dL Hct 38.4 L (39.6-50.0) % MCV 93.0 (80.0-97.0) fL MCH 32.0 (27.0-32.0) pg MCHC 34.4 (32.0-37.0) g/dL Plt Count 256 (140-440) 10*3/uL MPV 9.0 L (9.5-12.2) fL Immature Gran % (Auto) 0.5 % Neutrophils % 49.1 % Lymphocytes % 31.9 % Monocytes % 15.7 % Eosinophils % 1.7 % Basophils % 1.1 % Immature Gran # 0.05 H (0.00-0.04) 10*3/uL Neutrophils # 4.59 (1.80-7.70) 10*3/uL Lymphocytes # 2.99 (0.90-5.00) 10*3/uL Monocytes # 1.47 H (0.20-1.00) 10*3/uL Eosinophils # 0.16 (0.04-0.35) 10*3/uL Basophils # 0.10 (0.00-0.10) 10*3/uL Sodium 137 (137-145) mmol/L Potassium 4.0 (3.5-5.1) mmol/L Chloride 103 (98-107) mmol/L Carbon Dioxide 15 L (22-30) mmol/L Anion Gap 19 mmol/L BUN 18 (9-20) mg/dL Creatinine 0.89 (0.66-1.25) mg/dL Est GFR (CKD-EPI)AfAm >90 (>60 ml/min/1.73 sqM) Est GFR (CKD-EPI)NonAf >90 (>60 ml/min/1.73 sqM) Glucose 81 (74-99) mg/dL Calcium 9.8 (8.4-10.2) mg/dL Magnesium 2.2 (1.6-2.3) mg/dL Total Bilirubin 0.9 (0.2-1.3) mg/dL AST 60 H (17-59) U/L ALT 52 H (4-49) U/L Alkaline Phosphatase 77 (38-126) U/L Total Protein 7.6 (6.3-8.2) g/dL Albumin 5.0 (3.5-5.0) g/dL Serum Alcohol <10 mg/dL Disposition <Sandi Bird - Last Filed: 09/11/24 19:31> Time of Disposition: 20:03 <Mitul Rudd - Last Filed: 09/11/24 20:06> Clinical Impression: Alcohol withdrawal seizure, Laceration of scalp Disposition: ADMITTED IP TO THIS HOSP Referrals: Sudhir Sierra MD [Primary Care Provider] - 1-2 days
[2024-09-11 17:33] LABS: Basophils % (A) 1.1 %; Eosinophils # (A) 0.16 10*3/uL (0.04-0.35); Eosinophils % (A) 1.7 %; HCT 38.4 % (39.6-50.0); HGB 13.2 g/dL (13.0-17.0); Lymphocytes # (A) 2.99 10*3/uL (0.90-5.00); Lymphocytes % (A) 31.9 %; MCHC 34.4 g/dL (32.0-37.0); Monocytes # (A) 1.47 10*3/uL (0.20-1.00); Monocytes % (A) 15.7 %; Neutrophils # (A) 4.59 10*3/uL (1.80-7.70); Neutrophils % (A) 49.1 %; Platelet Count 256 10*3/uL (140-440); RBC 4.13 10*6/uL (4.40-5.60); RDW 13.1 % (11.5-14.5); WBC 9.36 10*3/uL (4.50-10.00)
[2024-09-11 17:43] LABS: ALT 52 U/L (4-49); AST 60 U/L (17-59); African American GFR (CKD) >90 (>60 ml/min/1.73 sqM); Alcohol <10 mg/dL; Alkaline Phosphatase 77 U/L (38-126); Anion Gap 19 mmol/L; Blood Urea Nitrogen 18 mg/dL (9-20); Calcium 9.8 mg/dL (8.4-10.2); Carbon Dioxide 15 mmol/L (22-30); Chloride 103 mmol/L (98-107); Glucose 81 mg/dL (74-99); Magnesium 2.2 mg/dL (1.6-2.3); Non-African American GFR(CKD) >90 (>60 ml/min/1.73 sqM); Sodium 137 mmol/L (137-145); Total Bilirubin 0.9 mg/dL (0.2-1.3); Total Protein 7.6 g/dL (6.3-8.2)
[2024-09-11] MEDS: DIPH,PERTUS(ACELL)TETVAC-LF 0.5 ML VIAL IM ONE (18:04)
--- NOTE | 2024-09-11 18:34 | CT ---
EXAMINATION TYPE: CT brain jessicaine wo con DATE OF EXAM: 09/11/2024 6:21 PM COMPARISON: None. CLINICAL INDICATION: Male, 53 years old with history of Trauma, fall, seizure, pain TECHNIQUE: CT of the brain is performed utilizing 3 mm thick sections through the posterior fossa and 3 mm thick sections through the remaining calvarium. Study is performed within 24 hours of arrival to the hospital. Contrast used: mL of , (none if empty) CT DLP: 1525.9 mGycm, Automated exposure control for dose reduction was used. FINDINGS: No abnormal hyperdensity is present to suggest an acute intracranial hemorrhage. No mass lesion is evident. No acute infarcts are evident. Ventricles and sulci are appropriate for the patient age. Paranasal sinuses and mastoid air cells within the [id number] are clear. IMPRESSIONS: 1. No acute intracranial process. Follow-up MRI can be performed as clinically indicated. CT cervical spine. COMPARISON: None TECHNIQUE: CT of the cervical spine is performed in the axial plane at 2 mm thick sections. Reconstr ucted images in the coronal, and sagittal plane are reviewed on the computer. FINDINGS: No acute fractures are evident. Vertebral body alignment is normal. Disc heights are preserved. Vertebral body heights are preserved. No spinal canal stenosis is evident. No neural foraminal stenosis is evident. IMPRESSION: 1. No acute osseous abnormality cervical spine [facility], Workstation: [facility], 09/11/2024 6:31 PM
[2024-09-11] MEDS ORDERED: LORazepam 0.5 MG TAB PO PRN (20:05)
[2024-09-11] MEDS ORDERED: LORazepam 1 MG TAB PO PRN (20:05)
[2024-09-11] MEDS ORDERED: LORazepam 2 MG/ML INJ IV PRN ×4 (20:05→21:52)
[2024-09-11] MEDS ORDERED: busPIRone HCl 5 MG TAB PO PRN (20:17)
[2024-09-11] MEDS ORDERED: ACETAMINOPHEN TAB 325 MG TAB PO PRN (21:04)
[2024-09-11] MEDS: THIAMINE 500 MG in SODIUM CHLORIDE 0.9% 50 ML IVPB SCH (21:50)
[2024-09-11] MEDS: PROPRANOLOL 20 MG TAB PO SCH (21:51)
--- NOTE | 2024-09-11 21:57 | P.HPIM ---
History of Present Illness H&P Date: 09/11/24 History of present illness; Patient is a 53-year-old male with history of anxiety depression who presents with new onset seizure. Patient states that he has been trying to cut back drinking and his last drink was this morning. He typically drinks 15 beers daily for the last 30 years. Today at roughly 4:15 p.m. he had a witnessed seizure and he hit his head and he has a laceration on the right posterior aspect of his head. Before seizure he felt lightheaded and he was seeing having tonic-clonic seizure by family. No witnessed incontinence however does have tongue bite left anterior portion. After seizure he had confusion and combative with EMS and was restrained by the police. He states he has never had a seizure before. Denies history of delirium tremens or hallucinations. At this time he has more alert and answering questions with no complaints of pain. Currently, patient reports absence of chest pain, dyspnea, cough, abdominal pain, weakness, dizziness, headache, and dysuria. Spoke with the ER physician, patient admission was accepted by internal medicine service for treatment. REVIEW OF SYSTEMS: Pertinent positives and negatives noted in HPI. PHYSICAL EXAMINATION: Vitals reviewed GENERAL: Resting comfortably in bed. EYES: PERRL, no scleral injection or icterus. No vision loss HENT: Laceration with eduard in right posterior head, hearing grossly intact, moist mucous membranes, left anterior tongue minor laceration NECK: No tracheal deviation, full range of motion. CARDIOVASCULAR: S1 and S2 present. No murmurs, rubs, or gallops. PULMONARY: Chest is clear to auscultation, no wheezing, rhonchi, or crackles. ABDOMEN: Soft, nontender, nondistended. No palpable organomegaly. MUSCULOSKELETAL: Bilateral wrist erythema. EXTREMITIES: No apparent cyanosis, clubbing. No pedal edema. NEUROLOGICAL: Alert and oriented x3. Gross neurological examination with no apparent focal deficits. No tremor present. SKIN: No apparent rashes. ER FINDINGS: Labs significant for hemoglobin 13.2 platelets 256, bicarb 15, AST 60, ALT 52, serum alcohol <10 EKG independently interpreted showed sinus rhythm heart rate of 96, QTc 435, no ST segment elevation or depression seen, no T-wave inversions seen. CT head neck independently interpreted showed no acute intracranial process. Assessment and Plan: In summary, patient is a 53-year-old male with history of anxiety depression who presents with new onset seizure. #Alcohol dependence with withdrawal #Alcohol withdrawal seizure #Trauma of right posterior head due to fall CT head neck unremarkable Laceration closed with eduard - Alcohol <10, last drink was morning of 09/11 - CIWA protocol with Ativan IVP in place - Ativan 2mg IVP q6h for seizure Daily thiamine and folic acid - Fall and seizure precautions Monitor daily electrolytes - putty worker consult #Transaminitis likely due to alcohol use Monitor CMP #Non anion gap metabolic acidosis -Lactic acid ordered Chronic Medical Conditions # Anxiety depression Hold bupropion due to lower seizure threshold Resume other home medications DVT ppx: Early ambulation Code status: Full code F: P.o. E: Replete as needed N: Heart healthy diet A: Ambulatory Anticipated discharge place: Pending clinical course Anticipated discharge time: Pending clinical course Dictation was produced using [employer] dictation software. Please excuse any grammatical, word or spelling errors. I have seen and evaluated the patient today. Discussed with the resident and a gree with the residents finding and plan as documented in the resident's note. Changes highlighted in blue font. Past Medical History Past Medical History: GERD/Reflux, Hearing Disorder / Deafness, Musculoskeletal Disorder Additional Past Medical History / Comment(s): HX CONSTIPATED FOR MONTHS. HYPOGLYCEMIC. TACHYCARDIA. HX KIDNEY STONES. C/O NECK PAIN RADIATES TO ARMS, BACK. History of Any Multi-Drug Resistant Organisms: None Reported Past Surgical History: Cholecystectomy, Orthopedic Surgery Additional Past Surgical History / Comment(s): IVP 1996. LT 5TH METATARSAL. Past Anesthesia/Blood Transfusion Reactions: No Reported Reaction Past Psychological History: Anxiety Smoking Status: Never smoker Past Alcohol Use History: Daily, Heavy Past Drug Use History: None Reported - Past Family History Mother Family Medical History: No Reported History Sister(s) Family Medical History: Cancer, Diabetes Mellitus Medications and Allergies Home Medications Medication Instructions Recorded Confirmed Type Citalopram Hydrobromide [CeleXA] 40 mg PO DAILY 09/11/24 09/11/24 History Meloxicam [Mobic] 15 mg PO DAILY 09/11/24 09/11/24 History Propranolol [Inderal] 20 mg PO TID 09/11/24 09/11/24 History buPROPion XL [Wellbutrin XL] 150 mg PO DAILY 09/11/24 09/11/24 History busPIRone HCl [Buspar] 5 mg PO BID PRN 09/11/24 09/11/24 History Allergies Allergy/AdvReac Type Severity Reaction Status Date / Time bee venom protein (honey bee) Allergy Anaphylaxis Verified 09/11/24 18:18 HAYFEVER Allergy Rhinitis Uncoded 09/11/24 18:18 Physical Exam Vitals: Vital Signs Temp Pulse Resp BP Pulse Ox 09/11/24 19:18 81 18 131/87 97 09/11/24 18:17 82 18 117/82 98 09/11/24 17:04 97.4 F L 105 H 20 134/97 96 Intake and Output 09/11/24 09/11/24 09/11/24 06:59 14:59 22:59 Other: Weight 79.379 kg Results CBC & Chem 7: 09/11/24 17:24 09/11/24 17:24 Labs: Abnormal Lab Results - Last 24 Hours (Table) 09/11/24 09/11/24 Range/Units 17:24 17:24 RBC 4.13 L (4.40-5.60) 10*6/uL Hct 38.4 L (39.6-50.0) % MPV 9.0 L (9.5-12.2) fL Immature Gran # 0.05 H (0.00-0.04) 10*3/uL Monocytes # 1.47 H (0.20-1.00) 10*3/uL Carbon Dioxide 15 L (22-30) mmol/L AST 60 H (17-59) U/L ALT 52 H (4-49) U/L
[2024-09-12] MEDS ORDERED: LORazepam 1 MG/0.5 ML VIAL IV PRN ×4 (08:21→08:24)
[2024-09-12 08:28] LABS: ALT 46 U/L (10-49); AST 50 U/L (14-35); Albumin 3.9 g/dL (3.8-4.9); Albumin/Globulin Ratio 2.17 Ratio (1.60-3.17); Alkaline Phosphatase 73 U/L (41-126); BUN/Creat Ratio 22.57 Ratio (12.00-20.00); Blood Urea Nitrogen 15.8 mg/dL (9.0-27.0); Calcium 8.5 mg/dL (8.7-10.3); Carbon Dioxide 20.1 mmol/L (21.6-31.8); Chloride 106 mmol/L (96-109); Globulin 1.8 g/dL (1.6-3.3); Glucose 89 mg/dL (70-110); Potassium 3.9 mmol/L (3.5-5.5); Sodium 137 mmol/L (135-145); Total Bilirubin 0.7 mg/dL (0.3-1.2); Total Protein 5.7 g/dL (6.2-8.2)
[2024-09-12] MEDS ORDERED: buPROPion XL 150 MG TAB.ER.24H PO SCH (09:00)
[2024-09-12] MEDS: THIAMINE 100 MG TAB PO SCH (09:27)
[2024-09-12] MEDS: CITALOPRAM HYDROBROMIDE 20 MG TAB PO SCH (09:27)
[2024-09-12] MEDS: FOLIC ACID 1 MG TAB PO SCH (09:27)
[2024-09-12] MEDS: MELOXICAM 7.5 MG TAB PO SCH (09:28)
[2024-09-12] MEDS: MULTIVITAMINS, THERA 1 EACH TAB PO SCH (09:28)
[2024-09-12 09:33] LABS: Basophils # (A) 0.05 X 10*3/uL (0.00-0.10); Basophils % (A) 0.7 %; Eosinophils # (A) 0.08 X 10*3/uL (0.04-0.35); Eosinophils % (A) 1.2 %; HCT 32.5 % (39.6-50.0); Lymphocytes # (A) 1.33 X 10*3/uL (0.90-5.00); Lymphocytes % (A) 19.8 %; MCH 32.1 pg (27.0-32.0); MCHC 33.8 g/dL (32.0-37.0); MCV 94.8 FL (80.0-97.0); Mean Platelet Volume 9.8 FL (9.5-12.2); Monocytes # (A) 1.08 X 10*3/uL (0.20-1.00); Monocytes % (A) 16.1 %; NRBC Per 100 WBC 0 X 10*3/uL (0.00-0.01); Neutrophils # (A) 4.15 X 10*3/uL (1.80-7.70); Neutrophils % (A) 61.8 %; Platelet Count 213 X 10*3/uL (140-440); RBC 3.43 X 10*6/uL (4.40-5.60); RDW 13.4 % (11.5-14.5); WBC 6.72 X 10*3/uL (4.50-10.00)
[2024-09-12 14:17] VITALS: BP 108/66; PULSE 65; RESP 17; TEMP 99.4
--- NOTE | 2024-09-12 17:20 | P.DS ---
Providers Date of admission: 09/11/24 20:06 Expected date of discharge: 09/12/24 Attending physician: Yoshi Santiago Primary care physician: Sudhir Billings [facility] Course: Hospital course: Patient is a 53-year-old male with history of anxiety depression who presents with new onset seizure. Patient states that he has been trying to cut back drinking and his last drink was this morning. He typically drinks 15 beers daily for the last 30 years. Today at roughly 4:15 p.m. he had a witnessed seizure and he hit his head and he has a laceration on the right posterior aspect of his head. Before seizure he felt lightheaded and he was seeing having tonic-clonic seizure by family. No witnessed incontinence however does have tongue bite left anterior portion. After seizure he had confusion and combative with EMS and was restrained by the police. He states he has never had a seizure before. Denies history of delirium tremens or hallucinations. At this time he has more alert and answering questions with no complaints of pain. Currently, patient reports absence of chest pain, dyspnea, cough, abdominal pain, weakness, dizziness, headache, and dysuria. Patient's symptoms improved over the course of hospitalization. Labs significant for hemoglobin 13.2 platelets 256, bicarb 15, AST 60, ALT 52, serum alcohol <10. EKG independently interpreted showed sinus rhythm heart rate of 96, QTc 435, no ST segment elevation or depression seen, no T-wave inversions seen. CT head neck independently interpreted showed no acute intracranial process. EKG showed ventricular rate of 96 bpm, QTc interval of 435 ms, no ST elevation or depression. He was seen at bedside this morning on 09/12/2024 with an estimated CIWA score of 0. Denies any visual or auditory hallucination, history of delirium tremens, nausea or vomiting, palpitations. Patient is medically stable to be discharged back home after 24 hours of observation. Bupropion 150 mg daily has been discontinued. Patient will follow-up with PCP in 3 days after discharge. Physical exam GENERAL: This is a 53-year-old in no apparent distress at the time of examination. Pleasant and cooperative. HEENT: Head is atraumatic, normocephalic. Pupils are equal, round, and reactive to light. Sclerae anicteric. Conjunctivae are clear. Mucus membranes of the mouth are moist. Neck is supple. RESPIRATORY: Clear to auscultation. No wheezes, rales, or rhonchi. No use of accessory muscles. Patient maintaining oxygen saturation greater than 92%. No chest wall tenderness is noted on palpation or with deep breathing. CARDIOVASCULAR: Regular rate and rhythm. S1 and S2 noted. No systolic or diastolic murmur auscultated. No JVD noted. No S3 or S4 noted. GASTROINTESTINAL: No distention noted. Abdomen soft and round. Normal active bowel sounds auscultated x 4 quadrants. No pain or tenderness noted upon palpation. INTEGUMENTARY: No cyanosis. No jaundice. No rashes noted. No cellulitis noted. EXTREMITIES: 2+ peripheral pulses. No evidence of peripheral edema. No calf tenderness noted. NEUROLOGIC: Cranial nerves II-XII intact. PSYCHIATRIC: Awake, alert, and oriented X 3. Appropriate affect. Intact judgement and insight. Discharge diagnosis Alcohol dependence with withdrawal Alcohol withdrawal seizure Trauma of right posterior head due to fall Transaminitis None anion gap metabolic acidosis A total of 32 minutes of time were spent preparing this complex discharge summary. Patient was discharged on 09/12/2024 at 1112. I have seen and evaluated the patient today. Discussed with the resident and agree with the residents finding and plan as documented in the resident's note. Changes highlighted in blue font. Plan - Discharge Summary Discharge Rx Participant: Yes New Discharge Prescriptions: Continue Propranolol [Inderal] 20 mg PO TID Meloxicam [Mobic] 15 mg PO DAILY Citalopram Hydrobromide [CeleXA] 40 mg PO DAILY busPIRone HCl [Buspar] 5 mg PO BID PRN PRN Reason: Anxiety Discontinued buPROPion XL [Wellbutrin XL] 150 mg PO DAILY Discharge Medication List Citalopram Hydrobromide [CeleXA] 40 mg PO DAILY 09/11/24 [History] Meloxicam [Mobic] 15 mg PO DAILY 09/11/24 [History] Propranolol [Inderal] 20 mg PO TID 09/11/24 [History] busPIRone HCl [Buspar] 5 mg PO BID PRN 09/11/24 [History] Follow up Appointment(s)/Referral(s): Sudhir Sierra MD [Primary Care Provider] - 09/14/24 11:15 am (with michell) Patient Instructions/Handouts: Alcohol Withdrawal (DC) Discharge/Stand Alone Forms: AA [facility] Substance Abuse Facilities, Outpatient Therapy List Discharge Disposition: HOME SELF-CARE
== END 2024-09-12 17:01 | disposition home or self-care (01) | DRG 101 ==
LOC: EC 16:56 → 4SSUR 20:06
PROVIDERS: ADMIT Student in an Organized Health Care Education/Training Program; ATTEND Student in an Organized Health Care Education/Training Program
PROC: 0HQ0XZZ Repair Scalp Skin, External Approach (ICD-10-PCS; principal; 2024-09-11)
DX: R56.9 Unspecified convulsions (principal); E87.20 Acidosis, unspecified; F10.239 Alcohol dependence with withdrawal, unspecified; F32.A Depression, unspecified; R74.01 Elevation of levels of liver transaminase levels; K59.00 Constipation, unspecified; F41.9 Anxiety disorder, unspecified; H91.90 Unspecified hearing loss, unspecified ear; S01.01XA Laceration without foreign body of scalp, initial encounter; W19.XXXA Unspecified fall, initial encounter; Z79.1 Long term (current) use of non-steroidal anti-inflammatories (NSAID); Z79.899 Other long term (current) drug therapy; Z87.442 Personal history of urinary calculi; Z78.1 Physical restraint status; Z28.21 Immunization not carried out because of patient refusal
CPT/HCPCS: 12002; 36415; 70450; 72125; 80053; 80320; 83605; 83735; 85025; 90471; 90715; 93005; 96361; 96374; 96375; 99291